=== PATIENT | male | born 1960 | race Two or more races ===

== ENCOUNTER 2018-06-13 16:50 | Inpatient (IN) | payer MEDICARE, MEDICAID ==
[~2018-06-13] VITALS: Ht 160 cm; Wt 63.5 kg
[2018-06-13 16:50] VITALS: BP 118/71
[~2018-06-13 16:50] MED LIST: ACET167L14 PO; BENZ1TAB7 MT; CHOL100044 MT; DIVA250T45 PO; DIVA500T51 PO; DOCU250C69 PO; FINA5TAB11 PO; INSU300I SQ; LORA0.5T2 PO; LORA10TA7 PO; MELA3TAB71 PO; POLY15DR55 LEFTEYE; PRAV10TA35 MT; PROP60CA2 PO; QUET100T33 PO; QUET300T19 MT; RISP1TAB26 PO; RISP2TAB22 PO; SERT-112 MT; SERT-112 PO; TAMS0.4C31 PO; [UNRECOGNIZED DRUG - CODE] PO
[2018-06-13] MEDS ORDERED: DIPHENHYDRAMINE 25MG CAPSULE PO PRN (18:30)
[2018-06-13] MEDS ORDERED: TRAMADOL 50MG TABLET PO PRN (19:30)
[2018-06-13] MEDS ORDERED: DEXTROSE 50% WATER 50ML SYRINGE IV PRN (19:30)
[2018-06-13] MEDS ORDERED: CLONIDINE 0.1MG TABLET PO PRN (19:30)
[2018-06-13] MEDS ORDERED: NA PHOS,M-B/NA PHOS,DI-BA ENEMA 118ML PR PRN (19:30)
[2018-06-13] MEDS ORDERED: KETOROLAC 15MG/ML VIAL IV PRN (19:30)
[2018-06-13] MEDS ORDERED: DOCUSATE SODIUM 100MG CAPSULE PO PRN (19:30)
[2018-06-13] MEDS ORDERED: ONDANSETRON 4MG ODT PO PRN (19:30)
[2018-06-13] MEDS ORDERED: CYCLOBENZAPRINE 10MG TABLET PO PRN (19:30)
[2018-06-13] MEDS ORDERED: IPRATROPIUM/ALBUTEROL 0.5-3(2.5)MG/3ML NEB HHN PRN (19:30)
[2018-06-13] MEDS ORDERED: LORAZEPAM 0.5MG TABLET PO PRN (19:30)
[2018-06-13 20:00] VITALS: BP 154/80
[2018-06-13] MEDS ORDERED: GUAIFENESIN 200MG/10ML SUGAR FREE UDC PO PRN (20:00)
[2018-06-13] MEDS ORDERED: MORPHINE SULFATE 4 MG/ML CPJ (NOT FOR IM USE) IV PRN (20:00)
[2018-06-13] MEDS ORDERED: MAGNESIUM/ALUMINUM HYDROXIDE/SIMETHICONE 30ML UDC PO PRN (20:00)
[2018-06-13] MEDS ORDERED: HYDROCODONE/ACETAMINOPHEN 10/325MG TABLET PO PRN (20:00)
[2018-06-13] MEDS ORDERED: HALOPERIDOL LACTATE 5MG/ML VIAL IM PRN (20:00)
[2018-06-13] MEDS: BLOOD SUGAR DIAGNOSTIC STRIP TEST SCH (20:54)
[2018-06-13] MEDS ORDERED: ZOLPIDEM TARTRATE 5MG TABLET PO PRN (21:00)
[2018-06-13] MEDS: ATORVASTATIN CALCIUM 10MG TABLET PO SCH (21:26)
[2018-06-13] MEDS: DIVALPROEX SODIUM 500MG ER TABLET PO SCH (21:26)
[2018-06-13] MEDS: DIVALPROEX SODIUM 250MG ER TABLET PO SCH (21:26)
[2018-06-13] MEDS: QUETIAPINE FUMARATE 50MG TABLET PO SCH (21:26)
[2018-06-13] MEDS: ASCORBIC ACID 500 MG TABLET PO SCH (21:26)
[2018-06-13] MEDS: FAMOTIDINE 20MG TABLET PO SCH (21:26)
[2018-06-13] MEDS: INSULIN LISPRO 100 UNITS/ML SUBCUT SCH (21:27)
[2018-06-13] MEDS: RISPERIDONE 0.5MG TABLET PO SCH (21:27)
[2018-06-13] MEDS: TAMSULOSIN HCL 0.4MG SR CAPSULE PO SCH (21:27)
[2018-06-13] MEDS: INSULIN GLARGINE UD 100 UNITS/ML SYR SUBCUT SCH (21:28)
[2018-06-14] MEDS: INSULIN LISPRO 100 UNITS/ML SUBCUT SCH ×4 (06:38→21:20)
[2018-06-14] MEDS: BLOOD SUGAR DIAGNOSTIC STRIP TEST SCH ×4 (06:38→21:12)
[2018-06-14 08:00] VITALS: BP 102/55
[2018-06-14] MEDS: FERROUS SULFATE 300MG/5ML UDC PO SCH ×3 (09:43→17:37)
[2018-06-14] MEDS: SERTRALINE HCL 100MG TABLET PO SCH (09:43)
[2018-06-14] MEDS: SERTRALINE HCL 25MG TABLET PO SCH (09:43)
[2018-06-14] MEDS: FAMOTIDINE 20MG TABLET PO SCH ×2 (09:44→21:12)
[2018-06-14] MEDS: ZINC SULFATE 220 MG ( 50 ) CAPSULE PO SCH (09:44)
[2018-06-14] MEDS: ASCORBIC ACID 500 MG TABLET PO SCH ×2 (09:44→21:12)
[2018-06-14] MEDS: ENOXAPARIN 40MG/0.4ML SYR SUBCUT SCH (09:46)
[2018-06-14] MEDS ORDERED: HYDROCODONE/ACETAMINOPHEN 5/325MG TABLET PO PRN (11:15)
[2018-06-14] MEDS: HYDROCODONE/ACETAMINOPHEN 5/325MG TABLET PO PRN (14:16)
[2018-06-14] MEDS: PROPRANOLOL HCL 20MG TABLET PO SCH ×2 (14:23→21:13)
[2018-06-14 17:20] LABS: BASOPHILS % 0.2 % (0.0-2.0); EOSINOPHILS % 0.1 % (0.0-5.0); HEMATOCRIT. 23.7 % (42.0-52.0); HEMOGLOBIN. 8.2 g/dL (14.0-18.0); LYMPHOCYTES % 15.1 % (20.0-50.0); MEAN CORPUSCULAR HEMOGLOBIN 34.4 pg (28.0-32.0); MEAN CORPUSCULAR VOLUME 100.2 fL (80.0-94.0); MONOCYTES % 10.4 % (2.0-8.0); NEUTROPHILS % 74.2 % (40.0-76.0); PLATELET 181 x1000/uL (130-400); RED BLOOD CELL COUNT 2.37 mill/uL (4.7-6.1)
[2018-06-14 17:42] LABS: CHLORIDE 106 mEq/L (98-107)
[2018-06-14 20:00] VITALS: BP 112/64
[2018-06-14] MEDS: DIVALPROEX SODIUM 250MG ER TABLET PO SCH (21:11)
[2018-06-14] MEDS: DIVALPROEX SODIUM 500MG ER TABLET PO SCH (21:11)
[2018-06-14] MEDS: QUETIAPINE FUMARATE 50MG TABLET PO SCH (21:12)
[2018-06-14] MEDS: TAMSULOSIN HCL 0.4MG SR CAPSULE PO SCH (21:12)
[2018-06-14] MEDS: ATORVASTATIN CALCIUM 10MG TABLET PO SCH (21:12)
[2018-06-14] MEDS: RISPERIDONE 0.5MG TABLET PO SCH (21:12)
[2018-06-14] MEDS: INSULIN GLARGINE UD 100 UNITS/ML SYR SUBCUT SCH (22:19)
[2018-06-15] MEDS: BLOOD SUGAR DIAGNOSTIC STRIP TEST SCH ×4 (06:34→21:59)
[2018-06-15] MEDS: PROPRANOLOL HCL 20MG TABLET PO SCH ×3 (06:37→22:00)
[2018-06-15] MEDS: INSULIN LISPRO 100 UNITS/ML SUBCUT SCH ×5 (06:40→21:58)
[2018-06-15 07:15] LABS: BASOPHILS % 0.1 % (0.0-2.0); EOSINOPHILS % 0.3 % (0.0-5.0); HEMATOCRIT. 23.8 % (42.0-52.0); HEMOGLOBIN. 8.1 g/dL (14.0-18.0); LYMPHOCYTES % 20.7 % (20.0-50.0); MEAN PLATELET VOLUME 7.1 fl (7.4-10.4); MONOCYTES % 10.3 % (2.0-8.0); NEUTROPHILS % 68.6 % (40.0-76.0); PLATELET 195 x1000/uL (130-400); RED BLOOD CELL COUNT 2.38 mill/uL (4.7-6.1)
[2018-06-15 07:30] LABS: CHLORIDE 104 mEq/L (98-107)
[2018-06-15 08:00] VITALS: BP 111/67
[2018-06-15] MEDS: FAMOTIDINE 20MG TABLET PO SCH ×2 (08:49→21:54)
[2018-06-15] MEDS: FERROUS SULFATE 300MG/5ML UDC PO SCH (08:49)
[2018-06-15] MEDS: SERTRALINE HCL 100MG TABLET PO SCH (08:49)
[2018-06-15] MEDS: ASCORBIC ACID 500 MG TABLET PO SCH ×2 (08:49→21:53)
[2018-06-15] MEDS: SERTRALINE HCL 25MG TABLET PO SCH (08:49)
[2018-06-15] MEDS: ENOXAPARIN 40MG/0.4ML SYR SUBCUT SCH (08:49)
[2018-06-15] MEDS: ZINC SULFATE 220 MG ( 50 ) CAPSULE PO SCH (08:49)
[2018-06-15] MEDS: FERROUS SULFATE 325MG TABLET PO SCH ×2 (12:41→17:37)
[2018-06-15 14:36] LABS: PHOSPHORUS 2.7 mg/dL (2.5-4.9)
[2018-06-15 15:03] LABS: CLARITY URINE CLEAR (CLEAR); COLOR URINE YELLOW (YELLOW); KETONES URINE 1+ (NEGATIVE); LEUKOCYTE ESTERASE URINE NEGATIVE (NEGATIVE); NITRITE URINE NEGATIVE (NEGATIVE); OCCULT BLOOD URINE NEGATIVE (NEGATIVE); PH URINE 6.5 (4.5-8.0); PROTEIN URINE NEGATIVE (NEGATIVE); SPECIFIC GRAVITY URINE 1.035 (1.005-1.030)
[2018-06-15 20:00] VITALS: BP 114/70
[2018-06-15] MEDS: ATORVASTATIN CALCIUM 10MG TABLET PO SCH (21:52)
[2018-06-15] MEDS: RISPERIDONE 0.5MG TABLET PO SCH (21:53)
[2018-06-15] MEDS: TAMSULOSIN HCL 0.4MG SR CAPSULE PO SCH (21:53)
[2018-06-15] MEDS: QUETIAPINE FUMARATE 50MG TABLET PO SCH (21:54)
[2018-06-15] MEDS: DIVALPROEX SODIUM 250MG ER TABLET PO SCH (21:56)
[2018-06-15] MEDS: DIVALPROEX SODIUM 500MG ER TABLET PO SCH (21:57)
[2018-06-15] MEDS: INSULIN GLARGINE UD 100 UNITS/ML SYR SUBCUT SCH (21:59)
[2018-06-16] MEDS: PROPRANOLOL HCL 20MG TABLET PO SCH ×3 (05:51→22:00)
[2018-06-16] MEDS: BLOOD SUGAR DIAGNOSTIC STRIP TEST SCH ×4 (05:52→21:37)
[2018-06-16 06:42] LABS: BASOPHILS % 0.2 % (0.0-2.0); EOSINOPHILS % 0.5 % (0.0-5.0); HEMATOCRIT. 24.2 % (42.0-52.0); HEMOGLOBIN. 8.4 g/dL (14.0-18.0); LYMPHOCYTES % 27.9 % (20.0-50.0); MEAN CORPUSCULAR HEMOGLOBIN 34.8 pg (28.0-32.0); MEAN CORPUSCULAR VOLUME 99.7 fL (80.0-94.0); MEAN PLATELET VOLUME 7.1 fl (7.4-10.4); MONOCYTES % 9.3 % (2.0-8.0); NEUTROPHILS % 62.1 % (40.0-76.0); PLATELET 233 x1000/uL (130-400); RED BLOOD CELL COUNT 2.43 mill/uL (4.7-6.1); RED CELL DISTRIBUTION WIDTH 13.3 % (11.6-14.6)
[2018-06-16 06:49] LABS: CHLORIDE 101 mEq/L (98-107)
[2018-06-16 06:59] LABS: LDL CHOLESTEROL 65 mg/dL (5-100)
[2018-06-16 07:00] VITALS: BP 104/58
[2018-06-16 07:00] LABS: TOTAL IRON BINDING CAPACITY 182 ug/dL (250-450)
[2018-06-16 07:01] LABS: HDL CHOLESTEROL 25 mg/dL (40-59)
[2018-06-16 07:02] LABS: PROSTRATE SPECIFIC AG TOTAL 0.16 ng/mL (0.0-4.0)
[2018-06-16 07:03] LABS: FOLIC ACID (FOLATE) SERUM 13.8 ng/mL (>5.38)
[2018-06-16] MEDS: INSULIN LISPRO 100 UNITS/ML SUBCUT SCH ×4 (08:57→21:48)
[2018-06-16] MEDS: SERTRALINE HCL 100MG TABLET PO SCH (08:58)
[2018-06-16] MEDS: ZINC SULFATE 220 MG ( 50 ) CAPSULE PO SCH (08:58)
[2018-06-16] MEDS: FAMOTIDINE 20MG TABLET PO SCH ×2 (08:58→21:46)
[2018-06-16] MEDS: FERROUS SULFATE 325MG TABLET PO SCH ×3 (08:59→17:26)
[2018-06-16] MEDS: ASCORBIC ACID 500 MG TABLET PO SCH ×2 (08:59→21:46)
[2018-06-16] MEDS: SERTRALINE HCL 25MG TABLET PO SCH (08:59)
[2018-06-16] MEDS: HYDROCODONE/ACETAMINOPHEN 5/325MG TABLET PO PRN ×2 (09:01→14:23)
[2018-06-16] MEDS: ENOXAPARIN 40MG/0.4ML SYR SUBCUT SCH (09:03)
[2018-06-16 14:15] VITALS: BP 111/66
[2018-06-16] MEDS: CYANOCOBALAMIN 1000MCG/ML VIAL IM SCH (15:21)
[2018-06-16 20:00] VITALS: BP 117/64
[2018-06-16] MEDS: ATORVASTATIN CALCIUM 10MG TABLET PO SCH (21:46)
[2018-06-16] MEDS: RISPERIDONE 0.5MG TABLET PO SCH (21:46)
[2018-06-16] MEDS: QUETIAPINE FUMARATE 50MG TABLET PO SCH (21:46)
[2018-06-16] MEDS: TAMSULOSIN HCL 0.4MG SR CAPSULE PO SCH (21:46)
[2018-06-16] MEDS: DIVALPROEX SODIUM 250MG ER TABLET PO SCH (21:47)
[2018-06-16] MEDS: DIVALPROEX SODIUM 500MG ER TABLET PO SCH (21:47)
[2018-06-16] MEDS: INSULIN GLARGINE UD 100 UNITS/ML SYR SUBCUT SCH (21:49)
[2018-06-17] MEDS: PROPRANOLOL HCL 20MG TABLET PO SCH ×2 (06:00→13:21)
[2018-06-17] MEDS: BLOOD SUGAR DIAGNOSTIC STRIP TEST SCH ×4 (06:23→21:00)
[2018-06-17] MEDS: INSULIN LISPRO 100 UNITS/ML SUBCUT SCH ×4 (06:56→22:44)
[2018-06-17 08:00] VITALS: BP 109/64
[2018-06-17] MEDS: FERROUS SULFATE 325MG TABLET PO SCH ×3 (08:20→17:23)
[2018-06-17] MEDS: CYANOCOBALAMIN 1000MCG/ML VIAL IM SCH (08:20)
[2018-06-17] MEDS: FAMOTIDINE 20MG TABLET PO SCH ×2 (08:20→22:40)
[2018-06-17] MEDS: ZINC SULFATE 220 MG ( 50 ) CAPSULE PO SCH (08:20)
[2018-06-17] MEDS: ENOXAPARIN 40MG/0.4ML SYR SUBCUT SCH (08:21)
[2018-06-17] MEDS: SERTRALINE HCL 25MG TABLET PO SCH (08:21)
[2018-06-17] MEDS: SERTRALINE HCL 100MG TABLET PO SCH (08:21)
[2018-06-17] MEDS: ASCORBIC ACID 500 MG TABLET PO SCH ×2 (08:21→22:40)
[2018-06-17] MEDS: HYDROCODONE/ACETAMINOPHEN 5/325MG TABLET PO SCH ×2 (08:23→12:41)
[2018-06-17] MEDS: MAGNESIUM OXIDE 400MG TABLET PO SCH (17:23)
[2018-06-17] MEDS: NYSTATIN POWDER 15GM TOP SCH (19:20)
[2018-06-17 20:00] VITALS: BP 114/59
[2018-06-17] MEDS: DIVALPROEX SODIUM 500MG ER TABLET PO SCH (22:40)
[2018-06-17] MEDS: QUETIAPINE FUMARATE 50MG TABLET PO SCH (22:40)
[2018-06-17] MEDS: ATORVASTATIN CALCIUM 10MG TABLET PO SCH (22:41)
[2018-06-17] MEDS: DIVALPROEX SODIUM 250MG ER TABLET PO SCH (22:41)
[2018-06-17] MEDS: RISPERIDONE 0.5MG TABLET PO SCH (22:41)
[2018-06-17] MEDS: TAMSULOSIN HCL 0.4MG SR CAPSULE PO SCH (22:44)
[2018-06-17] MEDS: INSULIN GLARGINE UD 100 UNITS/ML SYR SUBCUT SCH (22:44)
[2018-06-18] MEDS: BLOOD SUGAR DIAGNOSTIC STRIP TEST SCH ×4 (06:15→21:00)
[2018-06-18 07:25] LABS: HEMATOCRIT. 24.4 % (42.0-52.0); HEMOGLOBIN. 8.5 g/dL (14.0-18.0); MEAN CORPUSCULAR HEMOGLOBIN 34.7 pg (28.0-32.0); MEAN CORPUSCULAR VOLUME 100.3 fL (80.0-94.0); MEAN PLATELET VOLUME 6.6 fl (7.4-10.4); PLATELET 266 x1000/uL (130-400); RED BLOOD CELL COUNT 2.43 mill/uL (4.7-6.1); RED CELL DISTRIBUTION WIDTH 14.1 % (11.6-14.6)
[2018-06-18 07:49] LABS: CHLORIDE 100 mEq/L (98-107)
[2018-06-18 08:00] VITALS: BP_SYST 108; BP_SYST 120; BP_SYST 167; BP_DIAS 58; BP_DIAS 64; BP_DIAS 74
[2018-06-18] MEDS: HYDROCODONE/ACETAMINOPHEN 5/325MG TABLET PO SCH ×2 (08:00→12:47)
[2018-06-18] MEDS: ENOXAPARIN 40MG/0.4ML SYR SUBCUT SCH (08:54)
[2018-06-18] MEDS: NYSTATIN POWDER 15GM TOP SCH ×2 (08:55→17:56)
[2018-06-18] MEDS: MAGNESIUM OXIDE 400MG TABLET PO SCH (09:00)
[2018-06-18] MEDS: ZINC SULFATE 220 MG ( 50 ) CAPSULE PO SCH (09:00)
[2018-06-18] MEDS: SERTRALINE HCL 100MG TABLET PO SCH (09:00)
[2018-06-18] MEDS: CYANOCOBALAMIN 1000MCG/ML VIAL IM SCH (09:00)
[2018-06-18] MEDS: ASCORBIC ACID 500 MG TABLET PO SCH ×2 (09:00→22:17)
[2018-06-18] MEDS: SERTRALINE HCL 25MG TABLET PO SCH (09:00)
[2018-06-18] MEDS: FERROUS SULFATE 325MG TABLET PO SCH ×3 (09:00→16:42)
[2018-06-18] MEDS: FAMOTIDINE 20MG TABLET PO SCH ×2 (09:00→22:17)
[2018-06-18] MEDS: INSULIN LISPRO 100 UNITS/ML SUBCUT SCH ×4 (10:49→22:19)
[2018-06-18 16:48] LABS: PLATELET ESTIMATE NORMAL
[2018-06-18 20:00] VITALS: BP 129/58
[2018-06-18] MEDS: DIVALPROEX SODIUM 500MG ER TABLET PO SCH (22:16)
[2018-06-18] MEDS: ATORVASTATIN CALCIUM 10MG TABLET PO SCH (22:16)
[2018-06-18] MEDS: RISPERIDONE 0.5MG TABLET PO SCH (22:16)
[2018-06-18] MEDS: TAMSULOSIN HCL 0.4MG SR CAPSULE PO SCH (22:16)
[2018-06-18] MEDS: DIVALPROEX SODIUM 250MG ER TABLET PO SCH (22:16)
[2018-06-18] MEDS: PROPRANOLOL HCL 20MG TABLET PO SCH (22:17)
[2018-06-18] MEDS: QUETIAPINE FUMARATE 50MG TABLET PO SCH (22:17)
[2018-06-18] MEDS: INSULIN GLARGINE UD 100 UNITS/ML SYR SUBCUT SCH (22:18)
[2018-06-19] MEDS: BLOOD SUGAR DIAGNOSTIC STRIP TEST SCH ×4 (06:05→21:00)
[2018-06-19] MEDS: INSULIN LISPRO 100 UNITS/ML SUBCUT SCH ×4 (06:12→22:26)
[2018-06-19 08:00] VITALS: BP 103/59
[2018-06-19] MEDS: ZINC SULFATE 220 MG ( 50 ) CAPSULE PO SCH (08:26)
[2018-06-19] MEDS: SERTRALINE HCL 25MG TABLET PO SCH (08:27)
[2018-06-19] MEDS: PROPRANOLOL HCL 20MG TABLET PO SCH ×2 (08:27→22:21)
[2018-06-19] MEDS: SERTRALINE HCL 100MG TABLET PO SCH (08:28)
[2018-06-19] MEDS: FAMOTIDINE 20MG TABLET PO SCH ×2 (08:28→22:20)
[2018-06-19] MEDS: MAGNESIUM OXIDE 400MG TABLET PO SCH (08:28)
[2018-06-19] MEDS: FERROUS SULFATE 325MG TABLET PO SCH ×3 (08:28→17:17)
[2018-06-19] MEDS: ASCORBIC ACID 500 MG TABLET PO SCH ×2 (08:28→22:19)
[2018-06-19] MEDS: NYSTATIN POWDER 15GM TOP SCH ×2 (08:29→17:18)
[2018-06-19] MEDS: ENOXAPARIN 40MG/0.4ML SYR SUBCUT SCH (08:29)
[2018-06-19] MEDS: HYDROCODONE/ACETAMINOPHEN 5/325MG TABLET PO SCH ×2 (08:29→13:20)
[2018-06-19 20:00] VITALS: BP 104/65
[2018-06-19] MEDS: ATORVASTATIN CALCIUM 10MG TABLET PO SCH (22:19)
[2018-06-19] MEDS: TAMSULOSIN HCL 0.4MG SR CAPSULE PO SCH (22:20)
[2018-06-19] MEDS: QUETIAPINE FUMARATE 50MG TABLET PO SCH (22:20)
[2018-06-19] MEDS: RISPERIDONE 0.5MG TABLET PO SCH (22:20)
[2018-06-19] MEDS: DIVALPROEX SODIUM 250MG ER TABLET PO SCH (22:20)
[2018-06-19] MEDS: INSULIN GLARGINE UD 100 UNITS/ML SYR SUBCUT SCH (22:27)
[2018-06-19] MEDS: DIVALPROEX SODIUM 500MG ER TABLET PO SCH (23:37)
[2018-06-20 07:50] VITALS: BP 109/57
[2018-06-20] MEDS: HYDROCODONE/ACETAMINOPHEN 5/325MG TABLET PO SCH ×2 (08:00→13:01)
[2018-06-20] MEDS: PROPRANOLOL HCL 20MG TABLET PO SCH ×2 (09:00→22:10)
[2018-06-20] MEDS: ZINC SULFATE 220 MG ( 50 ) CAPSULE PO SCH (10:38)
[2018-06-20] MEDS: FAMOTIDINE 20MG TABLET PO SCH ×2 (10:38→22:09)
[2018-06-20] MEDS: MAGNESIUM OXIDE 400MG TABLET PO SCH (10:38)
[2018-06-20] MEDS: FERROUS SULFATE 325MG TABLET PO SCH ×3 (10:38→17:21)
[2018-06-20] MEDS: SERTRALINE HCL 100MG TABLET PO SCH (10:38)
[2018-06-20] MEDS: ASCORBIC ACID 500 MG TABLET PO SCH ×2 (10:38→22:07)
[2018-06-20] MEDS: INSULIN LISPRO 100 UNITS/ML SUBCUT SCH ×4 (10:39→22:05)
[2018-06-20] MEDS: ENOXAPARIN 40MG/0.4ML SYR SUBCUT SCH (10:39)
[2018-06-20] MEDS: NYSTATIN POWDER 15GM TOP SCH ×2 (10:41→17:21)
[2018-06-20 11:03] LABS: CLARITY URINE CLEAR (CLEAR); COLOR URINE DARK YELLOW (YELLOW); KETONES URINE TRACE (NEGATIVE); LEUKOCYTE ESTERASE URINE NEGATIVE (NEGATIVE); NITRITE URINE NEGATIVE (NEGATIVE); OCCULT BLOOD URINE NEGATIVE (NEGATIVE); PROTEIN URINE NEGATIVE (NEGATIVE); SPECIFIC GRAVITY URINE 1.032 (1.005-1.030)
[2018-06-20] MEDS: SERTRALINE HCL 25MG TABLET PO SCH (11:36)
[2018-06-20] MEDS: BLOOD SUGAR DIAGNOSTIC STRIP TEST SCH ×3 (11:49→21:00)
[2018-06-20 13:41] LABS: CHLORIDE 95 mEq/L (98-107)
[2018-06-20 13:43] LABS: AMMONIA 48 uMol/L (<32)
[2018-06-20 13:49] LABS: PHOSPHORUS 3.4 mg/dL (2.5-4.9)
[2018-06-20 14:14] LABS: HEMATOCRIT. 32.7 % (42.0-52.0); HEMOGLOBIN. 11.2 g/dL (14.0-18.0); MEAN CORPUSCULAR VOLUME 102.8 fL (80.0-94.0); MEAN PLATELET VOLUME 6.8 fl (7.4-10.4); PLATELET 427 x1000/uL (130-400); RED BLOOD CELL COUNT 3.18 mill/uL (4.7-6.1); RED CELL DISTRIBUTION WIDTH 15.4 % (11.6-14.6)
[2018-06-20 16:11] LABS: PLATELET ESTIMATE INCREASED
[2018-06-20 20:00] VITALS: BP 130/65
[2018-06-20] MEDS: INSULIN GLARGINE UD 100 UNITS/ML SYR SUBCUT SCH (22:05)
[2018-06-20] MEDS: RISPERIDONE 0.5MG TABLET PO SCH (22:06)
[2018-06-20] MEDS: QUETIAPINE FUMARATE 50MG TABLET PO SCH (22:07)
[2018-06-20] MEDS: TAMSULOSIN HCL 0.4MG SR CAPSULE PO SCH (22:07)
[2018-06-20] MEDS: ATORVASTATIN CALCIUM 10MG TABLET PO SCH (22:08)
[2018-06-20] MEDS: DIVALPROEX SODIUM 250MG ER TABLET PO SCH (22:09)
[2018-06-20] MEDS: DIVALPROEX SODIUM 500MG ER TABLET PO SCH (22:10)
[2018-06-21] MEDS: BLOOD SUGAR DIAGNOSTIC STRIP TEST SCH ×4 (05:55→21:00)
[2018-06-21 06:52] LABS: BASOPHILS % 0.4 % (0.0-2.0); EOSINOPHILS % 0.2 % (0.0-5.0); HEMATOCRIT. 33.4 % (42.0-52.0); HEMOGLOBIN. 11.4 g/dL (14.0-18.0); LYMPHOCYTES % 23.5 % (20.0-50.0); MEAN CORPUSCULAR HEMOGLOBIN 35.3 pg (28.0-32.0); MEAN CORPUSCULAR VOLUME 103.8 fL (80.0-94.0); MEAN PLATELET VOLUME 6.4 fl (7.4-10.4); NEUTROPHILS % 65.9 % (40.0-76.0); PLATELET 368 x1000/uL (130-400); RED BLOOD CELL COUNT 3.22 mill/uL (4.7-6.1); RED CELL DISTRIBUTION WIDTH 16.1 % (11.6-14.6)
[2018-06-21 07:00] VITALS: BP 112/56
[2018-06-21 07:43] LABS: CHLORIDE 100 mEq/L (98-107)
[2018-06-21] MEDS: MAGNESIUM OXIDE 400MG TABLET PO SCH (08:44)
[2018-06-21] MEDS: FERROUS SULFATE 325MG TABLET PO SCH ×3 (08:44→16:59)
[2018-06-21] MEDS: PROPRANOLOL HCL 20MG TABLET PO SCH ×2 (08:44→21:59)
[2018-06-21] MEDS: ZINC SULFATE 220 MG ( 50 ) CAPSULE PO SCH (08:44)
[2018-06-21] MEDS: ENOXAPARIN 40MG/0.4ML SYR SUBCUT SCH (08:45)
[2018-06-21] MEDS: SERTRALINE HCL 25MG TABLET PO SCH (08:45)
[2018-06-21] MEDS: FAMOTIDINE 20MG TABLET PO SCH ×2 (08:45→22:00)
[2018-06-21] MEDS: SERTRALINE HCL 100MG TABLET PO SCH (08:45)
[2018-06-21] MEDS: HYDROCODONE/ACETAMINOPHEN 5/325MG TABLET PO SCH ×2 (08:47→13:42)
[2018-06-21] MEDS ORDERED: ASCORBIC ACID 250 MG TABLET PO SCH (09:00)
[2018-06-21] MEDS: INSULIN LISPRO 100 UNITS/ML SUBCUT SCH ×4 (09:00→22:57)
[2018-06-21] MEDS: NYSTATIN POWDER 15GM TOP SCH ×2 (09:59→16:58)
[2018-06-21 13:35] VITALS: BP 107/56
[2018-06-21] MEDS: LACTULOSE 20G/30ML UDC PO SCH ×2 (13:45→22:09)
[2018-06-21 20:00] VITALS: BP 112/60
[2018-06-21] MEDS: DIVALPROEX SODIUM 500MG ER TABLET PO SCH (21:57)
[2018-06-21] MEDS: DIVALPROEX SODIUM 250MG ER TABLET PO SCH (21:57)
[2018-06-21] MEDS: ATORVASTATIN CALCIUM 10MG TABLET PO SCH (22:00)
[2018-06-21] MEDS: QUETIAPINE FUMARATE 50MG TABLET PO SCH (22:00)
[2018-06-21] MEDS: ASCORBIC ACID 500 MG TABLET PO SCH (22:00)
[2018-06-21] MEDS: RISPERIDONE 0.5MG TABLET PO SCH (22:00)
[2018-06-21] MEDS: TAMSULOSIN HCL 0.4MG SR CAPSULE PO SCH (22:01)
[2018-06-21] MEDS: INSULIN GLARGINE UD 100 UNITS/ML SYR SUBCUT SCH (22:58)
[2018-06-22] MEDS: BLOOD SUGAR DIAGNOSTIC STRIP TEST SCH ×4 (05:51→21:00)
[2018-06-22] MEDS: LACTULOSE 20G/30ML UDC PO SCH ×3 (05:51→22:00)
[2018-06-22 07:00] VITALS: BP 101/55
[2018-06-22] MEDS: INSULIN LISPRO 100 UNITS/ML SUBCUT SCH ×4 (07:09→21:00)
[2018-06-22 07:56] LABS: AMMONIA 86 uMol/L (<32)
[2018-06-22] MEDS: ZINC SULFATE 220 MG ( 50 ) CAPSULE PO SCH (08:57)
[2018-06-22] MEDS: ASCORBIC ACID 500 MG TABLET PO SCH ×2 (08:57→22:44)
[2018-06-22] MEDS: FERROUS SULFATE 325MG TABLET PO SCH ×3 (08:58→16:11)
[2018-06-22] MEDS: MAGNESIUM OXIDE 400MG TABLET PO SCH (08:58)
[2018-06-22] MEDS: ENOXAPARIN 40MG/0.4ML SYR SUBCUT SCH (08:59)
[2018-06-22] MEDS: SERTRALINE HCL 100MG TABLET PO SCH (08:59)
[2018-06-22] MEDS: FAMOTIDINE 20MG TABLET PO SCH ×2 (08:59→22:44)
[2018-06-22] MEDS: SERTRALINE HCL 25MG TABLET PO SCH (08:59)
[2018-06-22] MEDS: PROPRANOLOL HCL 20MG TABLET PO SCH ×2 (09:00→22:44)
[2018-06-22] MEDS: HYDROCODONE/ACETAMINOPHEN 5/325MG TABLET PO SCH ×2 (09:01→13:28)
[2018-06-22] MEDS: NYSTATIN POWDER 15GM TOP SCH ×2 (09:05→16:11)
[2018-06-22 11:27] LABS: CHLORIDE 99 mEq/L (98-107)
[2018-06-22 11:30] VITALS: BP 101/60
[2018-06-22 13:20] VITALS: BP 129/72
[2018-06-22 20:00] VITALS: BP 69/9
[2018-06-22] MEDS: RISPERIDONE 0.5MG TABLET PO SCH (21:00)
[2018-06-22] MEDS: INSULIN GLARGINE UD 100 UNITS/ML SYR SUBCUT SCH (22:00)
[2018-06-22] MEDS: ATORVASTATIN CALCIUM 10MG TABLET PO SCH ×2 (22:43→22:46)
[2018-06-22] MEDS: DIVALPROEX SODIUM 500MG ER TABLET PO SCH (22:43)
[2018-06-22] MEDS: TAMSULOSIN HCL 0.4MG SR CAPSULE PO SCH (22:46)
[2018-06-22] MEDS: QUETIAPINE FUMARATE 50MG TABLET PO SCH (22:47)
[2018-06-22] MEDS: DIVALPROEX SODIUM 250MG ER TABLET PO SCH (23:33)
[2018-06-23] MEDS: BLOOD SUGAR DIAGNOSTIC STRIP TEST SCH ×4 (05:37→21:39)
[2018-06-23] MEDS: LACTULOSE 20G/30ML UDC PO SCH ×3 (05:37→21:46)
[2018-06-23] MEDS: INSULIN LISPRO 100 UNITS/ML SUBCUT SCH ×4 (06:02→21:49)
[2018-06-23 07:50] VITALS: BP 152/59
[2018-06-23] MEDS: ASCORBIC ACID 500 MG TABLET PO SCH ×2 (08:36→21:48)
[2018-06-23] MEDS: FAMOTIDINE 20MG TABLET PO SCH ×2 (08:36→21:48)
[2018-06-23] MEDS: ZINC SULFATE 220 MG ( 50 ) CAPSULE PO SCH (08:36)
[2018-06-23] MEDS: MAGNESIUM OXIDE 400MG TABLET PO SCH (08:36)
[2018-06-23] MEDS: FERROUS SULFATE 325MG TABLET PO SCH ×3 (08:36→16:59)
[2018-06-23] MEDS: PROPRANOLOL HCL 20MG TABLET PO SCH ×2 (08:37→21:00)
[2018-06-23] MEDS: ENOXAPARIN 40MG/0.4ML SYR SUBCUT SCH (08:40)
[2018-06-23] MEDS: SERTRALINE HCL 25MG TABLET PO SCH (08:40)
[2018-06-23] MEDS: SERTRALINE HCL 100MG TABLET PO SCH (08:40)
[2018-06-23] MEDS: NYSTATIN POWDER 15GM TOP SCH ×2 (08:41→16:59)
[2018-06-23] MEDS: ACETAMINOPHEN 650MG/20.3ML UDC PO PRN (09:38)
[2018-06-23] MEDS: HYDROCODONE/ACETAMINOPHEN 5/325MG TABLET PO SCH (13:40)
[2018-06-23 15:54] LABS: CHLORIDE 95 mEq/L (98-107)
[2018-06-23 16:01] LABS: AMMONIA 43 uMol/L (<32)
[2018-06-23 20:00] VITALS: BP 126/55
[2018-06-23] MEDS: DIVALPROEX SODIUM 500MG ER TABLET PO SCH (21:47)
[2018-06-23] MEDS: DIVALPROEX SODIUM 250MG ER TABLET PO SCH (21:47)
[2018-06-23] MEDS: RISPERIDONE 0.5MG TABLET PO SCH (21:48)
[2018-06-23] MEDS: TAMSULOSIN HCL 0.4MG SR CAPSULE PO SCH (21:48)
[2018-06-23] MEDS: QUETIAPINE FUMARATE 50MG TABLET PO SCH (21:48)
[2018-06-23] MEDS: INSULIN GLARGINE UD 100 UNITS/ML SYR SUBCUT SCH (21:50)
[2018-06-24] MEDS: BLOOD SUGAR DIAGNOSTIC STRIP TEST SCH ×4 (06:25→21:44)
[2018-06-24] MEDS: LACTULOSE 20G/30ML UDC PO SCH ×3 (06:25→22:07)
[2018-06-24] MEDS: INSULIN LISPRO 100 UNITS/ML SUBCUT SCH ×4 (06:41→21:45)
[2018-06-24 07:05] LABS: AMMONIA 55 uMol/L (<32)
[2018-06-24 07:45] VITALS: BP 151/79
[2018-06-24] MEDS ORDERED: IOHEXOL-300 100 ML BOTTLE ONE (08:15)
[2018-06-24] MEDS ORDERED: HYDROCODONE/ACETAMINOPHEN 5/325MG TABLET PO SCH (09:00)
[2018-06-24] MEDS: SERTRALINE HCL 25MG TABLET PO SCH (09:06)
[2018-06-24] MEDS: ASCORBIC ACID 500 MG TABLET PO SCH ×2 (09:07→21:44)
[2018-06-24] MEDS: SERTRALINE HCL 100MG TABLET PO SCH (09:07)
[2018-06-24] MEDS: HYDROCODONE/ACETAMINOPHEN 5/325MG TABLET PO SCH (09:08)
[2018-06-24] MEDS: FERROUS SULFATE 325MG TABLET PO SCH ×3 (09:08→17:04)
[2018-06-24] MEDS: PROPRANOLOL HCL 20MG TABLET PO SCH ×2 (09:08→21:00)
[2018-06-24] MEDS: MAGNESIUM OXIDE 400MG TABLET PO SCH (09:08)
[2018-06-24] MEDS: FAMOTIDINE 20MG TABLET PO SCH ×2 (09:09→21:44)
[2018-06-24] MEDS: ENOXAPARIN 40MG/0.4ML SYR SUBCUT SCH (09:09)
[2018-06-24] MEDS: ZINC SULFATE 220 MG ( 50 ) CAPSULE PO SCH (09:09)
[2018-06-24] MEDS: NYSTATIN POWDER 15GM TOP SCH ×2 (09:10→17:04)
[2018-06-24] MEDS ORDERED: BISACODYL 10MG SUPP PR NR ×2 (17:35→20:00)
[2018-06-24] MEDS ORDERED: NA PHOS,M-B/NA PHOS,DI-BA ENEMA 118ML PR NR ×2 (17:45→20:00)
[2018-06-24 20:00] VITALS: BP 123/62
[2018-06-24] MEDS: DIVALPROEX SODIUM 500MG ER TABLET PO SCH (21:42)
[2018-06-24] MEDS: DIVALPROEX SODIUM 250MG ER TABLET PO SCH (21:43)
[2018-06-24] MEDS: RISPERIDONE 0.5MG TABLET PO SCH (21:43)
[2018-06-24] MEDS: TAMSULOSIN HCL 0.4MG SR CAPSULE PO SCH (21:43)
[2018-06-24] MEDS: ATORVASTATIN CALCIUM 10MG TABLET PO SCH (21:44)
[2018-06-24] MEDS: QUETIAPINE FUMARATE 50MG TABLET PO SCH (21:44)
[2018-06-24] MEDS: INSULIN GLARGINE UD 100 UNITS/ML SYR SUBCUT SCH (21:46)
[2018-06-25] VITALS: BP 118/68
[2018-06-25] MEDS ORDERED: BISACODYL 10MG SUPP PR PRN
[2018-06-25] MEDS: LACTULOSE 20G/30ML UDC PO SCH ×3 (05:51→21:36)
[2018-06-25] MEDS: BLOOD SUGAR DIAGNOSTIC STRIP TEST SCH ×4 (06:08→21:47)
[2018-06-25] MEDS: INSULIN LISPRO 100 UNITS/ML SUBCUT SCH ×4 (06:32→22:31)
[2018-06-25 07:40] VITALS: BP 102/57
[2018-06-25] MEDS: MAGNESIUM OXIDE 400MG TABLET PO SCH (08:48)
[2018-06-25] MEDS: FAMOTIDINE 20MG TABLET PO SCH ×2 (08:48→21:40)
[2018-06-25] MEDS: SERTRALINE HCL 100MG TABLET PO SCH (08:48)
[2018-06-25] MEDS: SERTRALINE HCL 25MG TABLET PO SCH (08:48)
[2018-06-25] MEDS: FERROUS SULFATE 325MG TABLET PO SCH ×3 (08:48→17:05)
[2018-06-25] MEDS: ZINC SULFATE 220 MG ( 50 ) CAPSULE PO SCH (08:48)
[2018-06-25] MEDS: NYSTATIN POWDER 15GM TOP SCH ×2 (08:53→17:06)
[2018-06-25] MEDS: ENOXAPARIN 40MG/0.4ML SYR SUBCUT SCH (08:53)
[2018-06-25] MEDS: PROPRANOLOL HCL 20MG TABLET PO SCH ×2 (08:53→21:38)
[2018-06-25] MEDS: ASCORBIC ACID 500 MG TABLET PO SCH ×2 (08:54→21:40)
[2018-06-25] MEDS: HYDROCODONE/ACETAMINOPHEN 5/325MG TABLET PO SCH (08:54)
[2018-06-25 17:06] LABS: 25-HYDROXY VITAMIN D3 37 ng/mL (.)
[2018-06-25 17:51] LABS: AMMONIA 45 uMol/L (<32)
[2018-06-25 20:00] VITALS: BP 102/54
[2018-06-25] MEDS: DIVALPROEX SODIUM 500MG ER TABLET PO SCH (21:37)
[2018-06-25] MEDS: ATORVASTATIN CALCIUM 10MG TABLET PO SCH (21:39)
[2018-06-25] MEDS: DIVALPROEX SODIUM 250MG ER TABLET PO SCH (21:40)
[2018-06-25] MEDS: TAMSULOSIN HCL 0.4MG SR CAPSULE PO SCH (21:40)
[2018-06-25] MEDS: RISPERIDONE 0.5MG TABLET PO SCH (21:40)
[2018-06-25] MEDS: QUETIAPINE FUMARATE 50MG TABLET PO SCH (21:40)
[2018-06-25] MEDS: INSULIN GLARGINE UD 100 UNITS/ML SYR SUBCUT SCH (22:31)
[2018-06-26] MEDS: LACTULOSE 20G/30ML UDC PO SCH ×3 (06:02→16:41)
[2018-06-26] MEDS: BLOOD SUGAR DIAGNOSTIC STRIP TEST SCH ×4 (06:03→20:07)
[2018-06-26 07:26] LABS: BASOPHILS % 0.4 % (0.0-2.0); EOSINOPHILS % 0.4 % (0.0-5.0); HEMATOCRIT. 31.3 % (42.0-52.0); HEMOGLOBIN. 10.5 g/dL (14.0-18.0); LYMPHOCYTES % 27.8 % (20.0-50.0); MEAN CORPUSCULAR HEMOGLOBIN 34.6 pg (28.0-32.0); MEAN CORPUSCULAR VOLUME 103.1 fL (80.0-94.0); MEAN PLATELET VOLUME 6.3 fl (7.4-10.4); MONOCYTES % 11.1 % (2.0-8.0); NEUTROPHILS % 60.3 % (40.0-76.0); PLATELET 326 x1000/uL (130-400); RED BLOOD CELL COUNT 3.04 mill/uL (4.7-6.1); RED CELL DISTRIBUTION WIDTH 15.5 % (11.6-14.6)
[2018-06-26 07:30] VITALS: BP 94/44
[2018-06-26 07:36] LABS: AMMONIA 89 uMol/L (<32)
[2018-06-26 08:13] LABS: CHLORIDE 100 mEq/L (98-107)
[2018-06-26 08:54] LABS: PHOSPHORUS 3.3 mg/dL (2.5-4.9)
[2018-06-26] MEDS: NYSTATIN POWDER 15GM TOP SCH ×2 (09:00→17:05)
[2018-06-26] MEDS: INSULIN LISPRO 100 UNITS/ML SUBCUT SCH ×4 (09:00→21:29)
[2018-06-26] MEDS: MAGNESIUM OXIDE 400MG TABLET PO SCH (10:25)
[2018-06-26] MEDS: PROPRANOLOL HCL 20MG TABLET PO SCH ×2 (10:25→21:28)
[2018-06-26] MEDS: HYDROCODONE/ACETAMINOPHEN 5/325MG TABLET PO SCH (10:26)
[2018-06-26] MEDS: ZINC SULFATE 220 MG ( 50 ) CAPSULE PO SCH (10:26)
[2018-06-26] MEDS: FAMOTIDINE 20MG TABLET PO SCH ×2 (10:26→20:07)
[2018-06-26] MEDS: ASCORBIC ACID 500 MG TABLET PO SCH ×2 (10:27→20:06)
[2018-06-26] MEDS: FERROUS SULFATE 325MG TABLET PO SCH ×3 (10:27→16:42)
[2018-06-26] MEDS: SERTRALINE HCL 100MG TABLET PO SCH (10:27)
[2018-06-26] MEDS: SERTRALINE HCL 25MG TABLET PO SCH (10:28)
[2018-06-26] MEDS: ENOXAPARIN 40MG/0.4ML SYR SUBCUT SCH (10:28)
[2018-06-26] MEDS: ACETAMINOPHEN 650MG/20.3ML UDC PO PRN (16:42)
[2018-06-26 20:00] VITALS: BP 113/57
[2018-06-26] MEDS: DIVALPROEX SODIUM 250MG ER TABLET PO SCH (20:06)
[2018-06-26] MEDS: DIVALPROEX SODIUM 500MG ER TABLET PO SCH (20:06)
[2018-06-26] MEDS: ATORVASTATIN CALCIUM 10MG TABLET PO SCH (20:07)
[2018-06-26] MEDS: TAMSULOSIN HCL 0.4MG SR CAPSULE PO SCH (20:07)
[2018-06-26] MEDS: QUETIAPINE FUMARATE 50MG TABLET PO SCH (20:07)
[2018-06-26] MEDS: RISPERIDONE 0.5MG TABLET PO SCH (21:28)
[2018-06-26] MEDS: INSULIN GLARGINE UD 100 UNITS/ML SYR SUBCUT SCH (21:29)
[2018-06-27] MEDS: BLOOD SUGAR DIAGNOSTIC STRIP TEST SCH ×4 (05:34→20:55)
[2018-06-27] MEDS: INSULIN LISPRO 100 UNITS/ML SUBCUT SCH ×4 (05:34→22:36)
[2018-06-27 08:00] VITALS: BP 101/48
[2018-06-27] MEDS: FERROUS SULFATE 325MG TABLET PO SCH ×3 (08:53→16:09)
[2018-06-27] MEDS: MAGNESIUM OXIDE 400MG TABLET PO SCH (08:53)
[2018-06-27] MEDS: ASCORBIC ACID 500 MG TABLET PO SCH ×2 (08:53→20:52)
[2018-06-27] MEDS: FAMOTIDINE 20MG TABLET PO SCH ×2 (08:54→20:52)
[2018-06-27] MEDS: ZINC SULFATE 220 MG ( 50 ) CAPSULE PO SCH (08:54)
[2018-06-27] MEDS: SERTRALINE HCL 100MG TABLET PO SCH (08:59)
[2018-06-27] MEDS: HYDROCODONE/ACETAMINOPHEN 5/325MG TABLET PO SCH (08:59)
[2018-06-27] MEDS: LACTULOSE 20G/30ML UDC PO SCH ×2 (09:00→16:09)
[2018-06-27] MEDS: PROPRANOLOL HCL 20MG TABLET PO SCH ×2 (09:00→20:51)
[2018-06-27] MEDS: SERTRALINE HCL 25MG TABLET PO SCH (09:00)
[2018-06-27] MEDS: ENOXAPARIN 40MG/0.4ML SYR SUBCUT SCH (09:01)
[2018-06-27] MEDS: NYSTATIN POWDER 15GM TOP SCH ×2 (09:09→16:10)
[2018-06-27 20:00] VITALS: BP 142/56
[2018-06-27] MEDS: DIVALPROEX SODIUM 250MG ER TABLET PO SCH (20:49)
[2018-06-27] MEDS: ATORVASTATIN CALCIUM 10MG TABLET PO SCH (20:51)
[2018-06-27] MEDS: TAMSULOSIN HCL 0.4MG SR CAPSULE PO SCH (20:51)
[2018-06-27] MEDS: QUETIAPINE FUMARATE 50MG TABLET PO SCH (20:51)
[2018-06-27] MEDS: DIVALPROEX SODIUM 500MG ER TABLET PO SCH (22:28)
[2018-06-27] MEDS: RISPERIDONE 0.5MG TABLET PO SCH (22:28)
[2018-06-27] MEDS: INSULIN GLARGINE UD 100 UNITS/ML SYR SUBCUT SCH (22:37)
[2018-06-28] MEDS: BLOOD SUGAR DIAGNOSTIC STRIP TEST SCH ×4 (06:35→21:04)
[2018-06-28] MEDS: INSULIN LISPRO 100 UNITS/ML SUBCUT SCH ×4 (06:38→21:09)
[2018-06-28 08:00] VITALS: BP 144/67
[2018-06-28] MEDS: ENOXAPARIN 40MG/0.4ML SYR SUBCUT SCH (08:48)
[2018-06-28] MEDS: PROPRANOLOL HCL 20MG TABLET PO SCH ×2 (08:48→20:44)
[2018-06-28] MEDS: LACTULOSE 20G/30ML UDC PO SCH ×2 (08:48→16:42)
[2018-06-28] MEDS: MAGNESIUM OXIDE 400MG TABLET PO SCH (08:49)
[2018-06-28] MEDS: ASCORBIC ACID 500 MG TABLET PO SCH ×2 (08:49→20:43)
[2018-06-28] MEDS: ZINC SULFATE 220 MG ( 50 ) CAPSULE PO SCH (08:49)
[2018-06-28] MEDS: FERROUS SULFATE 325MG TABLET PO SCH ×3 (08:49→16:42)
[2018-06-28] MEDS: FAMOTIDINE 20MG TABLET PO SCH ×2 (08:49→20:44)
[2018-06-28] MEDS: HYDROCODONE/ACETAMINOPHEN 5/325MG TABLET PO SCH (08:50)
[2018-06-28] MEDS: NYSTATIN POWDER 15GM TOP SCH ×2 (08:50→16:50)
[2018-06-28] MEDS: SERTRALINE HCL 100MG TABLET PO SCH (08:51)
[2018-06-28] MEDS: SERTRALINE HCL 25MG TABLET PO SCH (08:51)
[2018-06-28] MEDS ORDERED: INSULIN LISPRO 100 UNITS/ML SUBCUT NR (11:43)
[2018-06-28 12:59] LABS: AMMONIA 39 uMol/L (<32)
[2018-06-28 20:00] VITALS: BP 120/60
[2018-06-28] MEDS: DIVALPROEX SODIUM 250MG ER TABLET PO SCH (20:43)
[2018-06-28] MEDS: DIVALPROEX SODIUM 500MG ER TABLET PO SCH (20:43)
[2018-06-28] MEDS: ATORVASTATIN CALCIUM 10MG TABLET PO SCH (20:43)
[2018-06-28] MEDS: QUETIAPINE FUMARATE 50MG TABLET PO SCH (20:44)
[2018-06-28] MEDS: RISPERIDONE 0.5MG TABLET PO SCH (20:44)
[2018-06-28] MEDS: TAMSULOSIN HCL 0.4MG SR CAPSULE PO SCH (20:44)
[2018-06-28] MEDS: INSULIN GLARGINE UD 100 UNITS/ML SYR SUBCUT SCH (21:09)
[2018-06-29] MEDS: INSULIN LISPRO 100 UNITS/ML SUBCUT SCH ×2 (06:35→12:48)
[2018-06-29] MEDS: BLOOD SUGAR DIAGNOSTIC STRIP TEST SCH ×2 (06:35→11:15)
[2018-06-29 08:00] VITALS: BP 111/67
[2018-06-29 08:26] LABS: AMMONIA 52 uMol/L (<32)
[2018-06-29] MEDS: SERTRALINE HCL 25MG TABLET PO SCH (09:40)
[2018-06-29] MEDS: SERTRALINE HCL 100MG TABLET PO SCH (09:40)
[2018-06-29] MEDS: FAMOTIDINE 20MG TABLET PO SCH (09:40)
[2018-06-29] MEDS: ENOXAPARIN 40MG/0.4ML SYR SUBCUT SCH (09:40)
[2018-06-29] MEDS: LACTULOSE 20G/30ML UDC PO SCH (09:41)
[2018-06-29] MEDS: ASCORBIC ACID 500 MG TABLET PO SCH (09:41)
[2018-06-29] MEDS: MAGNESIUM OXIDE 400MG TABLET PO SCH (09:41)
[2018-06-29] MEDS: FERROUS SULFATE 325MG TABLET PO SCH ×2 (09:41→12:25)
[2018-06-29] MEDS: PROPRANOLOL HCL 20MG TABLET PO SCH (09:41)
[2018-06-29] MEDS: ZINC SULFATE 220 MG ( 50 ) CAPSULE PO SCH (09:41)
[2018-06-29] MEDS: NYSTATIN POWDER 15GM TOP SCH (09:42)
[2018-06-29 10:57] VITALS: BP 111/67
[2018-06-29] MEDS ORDERED: INSULIN LISPRO 100 UNITS/ML SUBCUT SCH (12:45)
== END 2018-06-29 15:50 | disposition home health service (06) | DRG 536 ==
PROVIDERS: ADMIT Physical Medicine & Rehabilitation Spinal Cord Injury Medicine; ATTEND Internal Medicine
DX: S72.142A Displaced intertrochanteric fracture of left femur, initial encounter for closed fracture (principal); E11.65 Type 2 diabetes mellitus with hyperglycemia; F20.9 Schizophrenia, unspecified; M79.609 Pain in unspecified limb; R53.81 Other malaise; R26.9 Unspecified abnormalities of gait and mobility; E78.5 Hyperlipidemia, unspecified; D72.829 Elevated white blood cell count, unspecified; D63.8 Anemia in other chronic diseases classified elsewhere; R47.1 Dysarthria and anarthria; R00.0 Tachycardia, unspecified; I11.9 Hypertensive heart disease without heart failure; B95.2 Enterococcus as the cause of diseases classified elsewhere; Z16.21 Resistance to vancomycin; R62.50 Unspecified lack of expected normal physiological development in childhood; E83.42 Hypomagnesemia; R74.0 Nonspecific elevation of levels of transaminase and lactic acid dehydrogenase [LDH]; R55 Syncope and collapse; F71 Moderate intellectual disabilities; K76.9 Liver disease, unspecified; W19.XXXA Unspecified fall, initial encounter; N40.0 Benign prostatic hyperplasia without lower urinary tract symptoms; Z79.4 Long term (current) use of insulin; Y93.89 Activity, other specified; Y92.89 Other specified places as the place of occurrence of the external cause; Y99.8 Other external cause status; Z81.0 Family history of intellectual disabilities; Z79.899 Other long term (current) drug therapy
CPT/HCPCS: 36415; 70551; 71046; 73502; 73552; 74018; 74177; 76700; 80048; 80053; 80061; 80076; 80165; 81003; 82140; 82270; 82306; 82607; 82728; 82746; 82962; 83036; 83540; 83550; 83735; 84100; 84134; 84153; 84443; 84630; 85025; 87040; 87086; 92523; 92610; 93005; 93306; 93970; 93976; 97110; 97116; 97163; 97167; 97530; 97535; A6261; C1893; J1650; J1815; J3420; Q9967; G0103

== ENCOUNTER 2018-10-07 11:14 | Emergency (ER) | payer MEDICARE, MEDICAID ==
[~2018-10-07] VITALS: Ht 157.5 cm; Wt 59.0 kg
[~2018-10-07 11:14] MED LIST changes: -ACET167L14 PO; -BENZ1TAB7 MT; -CHOL100044 MT; -DIVA250T45 PO; -DIVA500T51 PO; -DOCU250C69 PO; -FINA5TAB11 PO; -INSU300I SQ; -LORA0.5T2 PO; -LORA10TA7 PO; -MELA3TAB71 PO; -POLY15DR55 LEFTEYE; -PRAV10TA35 MT; -PROP60CA2 PO; -QUET100T33 PO; -QUET300T19 MT; -RISP1TAB26 PO; -RISP2TAB22 PO; -[UNRECOGNIZED DRUG - CODE] PO
[2018-10-07 14:32] LABS: BASOPHILS % 0.3 % (0.0-2.0); EOSINOPHILS % 0.4 % (0.0-5.0); HEMATOCRIT. 46.6 % (42.0-52.0); HEMOGLOBIN. 15.8 g/dL (14.0-18.0); LYMPHOCYTES % 14.9 % (20.0-50.0); MEAN CORPUSCULAR HEMOGLOBIN 32.5 pg (28.0-32.0); MEAN CORPUSCULAR VOLUME 95.8 fL (80.0-94.0); MEAN PLATELET VOLUME 6.6 fl (7.4-10.4); MONOCYTES % 9.8 % (2.0-8.0); NEUTROPHILS % 74.6 % (40.0-76.0); PLATELET 136 x1000/uL (130-400); RED BLOOD CELL COUNT 4.86 mill/uL (4.7-6.1); RED CELL DISTRIBUTION WIDTH 14.5 % (11.6-14.6)
[2018-10-07 14:39] LABS: PROTHROMBIN TIME 10.5 sec (9.1-11.1)
[2018-10-07 15:15] VITALS: BP 111/69
== END 2018-10-07 15:32 | disposition home or self-care (01) ==
LOC: ER 12:38
DX: R21 Rash and other nonspecific skin eruption (principal); E11.9 Type 2 diabetes mellitus without complications; Z79.899 Other long term (current) drug therapy
CPT/HCPCS: 36415; 99283

== ENCOUNTER 2022-04-02 07:00 | Emergency (ER) | payer MEDICARE, MEDICAID ==
[~2022-04-02] VITALS: Ht 167.6 cm; Wt 65.0 kg
[~2022-04-02 07:00] MED LIST changes: +ACET-2708 MT; +AMMO140C2 TOP; +ASCO-339 PO; +ASPI-1497 PO; +ATOR10TA69 PO; +BISA5TAB10 PO; +BISM525O9 PO; +DEXT15LI PO; +DIAZ10TA4 PO; +FLUT15.844 BOTHNSTRLS; +FLUT15.844 NS; +GLUC1KIT IM; +GLUCAGON; +IBUP-2028 PO; +INSU100C6 SQ; +INSU300I SQ; +KETO15CR2 TP; +LORA-250 PO; +LORA10TA7 PO; +MAG-55 PO; +MAGN400T8 PO; +MELA5TAB3 MT; +MIRT-89 PO; +MUPI15CR11 TP; +OLAN15TA35 PO; +PETR99OI; +PETR99OI TP; +POLY119P3 PO; -SERT-112 MT; -SERT-112 PO; +SIME125T3 PO; -TAMS0.4C31 PO; +ZINC50TA72 PO
[2022-04-02 09:18] LABS: BASOPHILS % 0.2 % (0.0-2.0); HEMATOCRIT. 46.3 % (42.0-52.0); HEMOGLOBIN. 15.4 g/dL (14.0-18.0); LYMPHOCYTES % 7.2 % (20.0-50.0); MEAN CORPUSCULAR HEMOGLOBIN 32.8 pg (28.0-32.0); MEAN CORPUSCULAR VOLUME 98.4 fL (80.0-94.0); MEAN PLATELET VOLUME 8.2 fl (7.4-10.4); MONOCYTES % 5.3 % (2.0-8.0); NEUTROPHILS % 87.3 % (40.0-76.0); PLATELET 166 x1000/uL (130-400); RED BLOOD CELL COUNT 4.71 mill/uL (4.7-6.1); RED CELL DISTRIBUTION WIDTH 13.5 % (11.6-14.6)
[2022-04-02 10:57] LABS: CLARITY URINE CLEAR (CLEAR); COLOR URINE YELLOW (YELLOW); KETONES URINE 3+ (NEGATIVE); LEUKOCYTE ESTERASE URINE 1+ (NEGATIVE); NITRITE URINE POSITIVE (NEGATIVE); OCCULT BLOOD URINE 2+ (NEGATIVE); PROTEIN URINE NEGATIVE (NEGATIVE); SPECIFIC GRAVITY URINE 1.027 (1.005-1.030); UROBILINOGEN URINE 0.2 E.U./dL (0.2-1.0)
[2022-04-02 11:03] LABS: CHLORIDE 105 mEq/L (98-107)
[2022-04-02] MEDS ORDERED: LEVOFLOXACIN 250MG TABLET PO ONE (11:15)
[2022-04-02] MEDS ORDERED: LEVO750T46 PO (11:16)
[2022-04-02 12:55] VITALS: BP 114/62
== END 2022-04-02 13:56 | disposition home or self-care (01) ==
LOC: ER 07:00
DX: N39.0 Urinary tract infection, site not specified (principal); R31.0 Gross hematuria; E11.65 Type 2 diabetes mellitus with hyperglycemia; K92.1 Melena
CPT/HCPCS: 36415; 80053; 81003; 82962; 85025; 87077; 87186; 99283

== ENCOUNTER 2022-07-29 09:32 | Emergency (ER) | payer MEDICARE, MEDICAID ==
[~2022-07-29] VITALS: Ht 170.2 cm; Wt 63.0 kg
[~2022-07-29 09:32] MED LIST changes: +LEVO750T46 PO; +MAGN400T55 PO; -MAGN400T8 PO
[2022-07-29] MEDS ORDERED: ACET-2708 MT (12:22)
[2022-07-29 14:34] VITALS: BP 158/63
== END 2022-07-29 09:55 | disposition home or self-care (01) ==
LOC: ER 09:39
DX: Z00.00 Encounter for general adult medical examination without abnormal findings (principal); E11.9 Type 2 diabetes mellitus without complications; Z79.899 Other long term (current) drug therapy
CPT/HCPCS: 71045; 72170; 99284

== ENCOUNTER 2022-12-18 13:55 | Inpatient (IN) | payer MEDICARE, MEDICAID ==
[~2022-12-18] VITALS: Ht 167.6 cm; Wt 50.8 kg
[~2022-12-18 13:55] MED LIST changes: +BISA-145 PO; -BISA5TAB10 PO; -LEVO750T46 PO; +LEVO750T68 PO
[2022-12-18] MEDS ORDERED: LORAZEPAM 2MG/ML CPJ IV ONE (18:15)
[2022-12-18 19:10] LABS: BASOPHILS % 0.3 % (0.0-2.0); EOSINOPHILS % 0.1 % (0.0-5.0); HEMATOCRIT. 44.5 % (42.0-52.0); HEMOGLOBIN. 14.8 g/dL (14.0-18.0); LYMPHOCYTES % 18.8 % (20.0-50.0); MEAN CORPUSCULAR HEMOGLOBIN 31.1 pg (28.0-32.0); MEAN CORPUSCULAR VOLUME 93.4 fL (80.0-94.0); MEAN PLATELET VOLUME 7.7 fl (7.4-10.4); NEUTROPHILS % 73.8 % (40.0-76.0); PLATELET 280 x1000/uL (130-400); RED BLOOD CELL COUNT 4.76 mill/uL (4.7-6.1); RED CELL DISTRIBUTION WIDTH 15.1 % (11.6-14.6)
[2022-12-18 19:17] LABS: CHLORIDE 101 mEq/L (98-107)
[2022-12-18 19:21] LABS: INR 0.9; PARTIAL THROMBOPLASTIN TIME 29.1 sec (23.4-31.0); PROTHROMBIN TIME 10.1 sec (9.6-11.0)
[2022-12-18] MEDS ORDERED: ACETAMINOPHEN 500MG TABLET PO STA (19:31)
[2022-12-18] MEDS ORDERED: AZITHROMYCIN 500MG/250ML 250 ML IV ONE (19:45)
[2022-12-18] MEDS ORDERED: CEFTRIAXONE 2 G PREMIX 50 ML IV ONE (19:45)
[2022-12-18] MEDS ORDERED: CEFTRIAXONE 2 G in DEXTROSE 5% WATER 50 ML IV SCH (20:00)
[2022-12-18 23:45] VITALS: BP 110/67
[2022-12-19] VITALS: BP 110/67
[2022-12-19 00:09] LABS: CLARITY URINE CLEAR (CLEAR); COLOR URINE YELLOW (YELLOW); KETONES URINE TRACE (NEGATIVE); LEUKOCYTE ESTERASE URINE NEGATIVE (NEGATIVE); NITRITE URINE NEGATIVE (NEGATIVE); OCCULT BLOOD URINE NEGATIVE (NEGATIVE); PROTEIN URINE NEGATIVE (NEGATIVE); SPECIFIC GRAVITY URINE 1.031 (1.005-1.030); UROBILINOGEN URINE 0.2 E.U./dL (0.2-1.0)
[2022-12-19 04:00] VITALS: BP 140/62
[2022-12-19] MEDS ORDERED: ACETAMINOPHEN 325MG TABLET PO PRN (05:15)
[2022-12-19] MEDS ORDERED: ALBUTEROL (0.083%) 2.5MG/3ML NEB HHN SCH (06:00)
[2022-12-19 08:00] VITALS: BP 123/63
[2022-12-19] MEDS ORDERED: DEXTROSE 50% WATER 50ML SYRINGE IV PRN (10:45)
[2022-12-19] MEDS ORDERED: ONDANSETRON HCL 4MG/2ML INJ IV PRN (10:45)
[2022-12-19 12:00] VITALS: BP 139/74
[2022-12-19] MEDS ORDERED: IPRATROPIUM/ALBUTEROL 0.5-3(2.5)MG/3ML NEB HHN SCH (12:00)
[2022-12-19] MEDS: BLOOD SUGAR DIAGNOSTIC STRIP TEST SCH ×2 (12:20→17:20)
[2022-12-19] MEDS: INSULIN LISPRO 100 UNITS/ML SUBCUT SCH (12:50)
[2022-12-19] MEDS ORDERED: ALBUTEROL (0.083%) 2.5MG/3ML NEB HHN PRN (14:45)
[2022-12-19 16:00] VITALS: BP 151/70
[2022-12-19] MEDS: LORAZEPAM 2MG/ML CPJ IV PRN ×2 (16:45→20:31)
[2022-12-19] MEDS: CEFTRIAXONE 1,000 MG in DEXTROSE 5% WATER 50 ML IV SCH (19:00)
[2022-12-19 20:00] VITALS: BP 151/74
[2022-12-19] MEDS: AZITHROMYCIN 250 MG TABLET PO SCH (22:00)
[2022-12-20] VITALS: BP 146/70
[2022-12-20 04:00] VITALS: BP 145/73
[2022-12-20] MEDS: IPRATROPIUM BROMIDE (0.02%) 0.5MG/2.5ML NEB HHN SCH ×3 (08:55→20:00)
[2022-12-20] MEDS: ALBUTEROL (0.083%) 2.5MG/3ML NEB HHN SCH ×3 (08:55→20:00)
[2022-12-20] MEDS: ENOXAPARIN 40MG/0.4ML SYR SUBCUT SCH (09:01)
[2022-12-20] MEDS ORDERED: INSULIN GLARGINE 100 UNITS/ML SUBCUT NR (13:00)
[2022-12-20] MEDS: AZITHROMYCIN 250 MG TABLET PO SCH (17:56)
[2022-12-20] MEDS: BLOOD SUGAR DIAGNOSTIC STRIP TEST SCH ×2 (17:57→20:57)
[2022-12-20] MEDS: INSULIN LISPRO 100 UNITS/ML SUBCUT SCH ×3 (18:06→22:42)
[2022-12-20] MEDS: CEFTRIAXONE 1,000 MG in DEXTROSE 5% WATER 50 ML IV SCH (18:06)
[2022-12-20] MEDS: INSULIN GLARGINE 100 UNITS/ML SUBCUT SCH (22:50)
[2022-12-21] VITALS: BP 113/69
[2022-12-21] MEDS: ALBUTEROL (0.083%) 2.5MG/3ML NEB HHN SCH ×3 (02:00→12:00)
[2022-12-21] MEDS: IPRATROPIUM BROMIDE (0.02%) 0.5MG/2.5ML NEB HHN SCH ×3 (02:00→12:00)
[2022-12-21] MEDS: BLOOD SUGAR DIAGNOSTIC STRIP TEST SCH ×2 (07:20→12:48)
[2022-12-21] MEDS ORDERED: INSULIN LISPRO 100 UNITS/ML SUBCUT SCH (07:20)
[2022-12-21] MEDS: ENOXAPARIN 40MG/0.4ML SYR SUBCUT SCH (08:38)
[2022-12-21] MEDS ORDERED: LEVO750T68 PO (09:24)
[2022-12-21] MEDS: INSULIN GLARGINE 100 UNITS/ML SUBCUT SCH (11:11)
[2022-12-21 16:08] VITALS: BP 136/78
== END 2022-12-21 18:05 | disposition home or self-care (01) | DRG 871 ==
LOC: ER 13:55 → MICUSO 22:43 → 6EST 12-19 00:14
PROVIDERS: ADMIT Internal Medicine; ATTEND Internal Medicine
DX: A41.9 Sepsis, unspecified organism (principal); J18.9 Pneumonia, unspecified organism; J96.00 Acute respiratory failure, unspecified whether with hypoxia or hypercapnia; F03.911 Unspecified dementia, unspecified severity, with agitation; R04.2 Hemoptysis; E11.65 Type 2 diabetes mellitus with hyperglycemia; F41.9 Anxiety disorder, unspecified; E78.5 Hyperlipidemia, unspecified; Z20.822 Contact with and (suspected) exposure to COVID-19; N40.0 Benign prostatic hyperplasia without lower urinary tract symptoms; Z88.6 Allergy status to analgesic agent
CPT/HCPCS: 36415; 71045; 80053; 81003; 82962; 83605; 85025; 87070; 87426; 87804; 99285; C9803; J0456; J0696; J1650; J1815; J2060; J7060

== ENCOUNTER 2024-03-13 11:54 | Emergency (ER) | payer MEDICARE, MEDICAID ==
[~2024-03-13] VITALS: Ht 167.6 cm; Wt 75.0 kg
[2024-03-13 11:58] VITALS: O2SAT 96
[2024-03-13 13:15] VITALS: BP 128/76; PULSE 66; RESP 17; TEMP 97.2
== END 2024-03-13 13:43 | disposition home or self-care (01) ==
LOC: ER 11:54
DX: M79.601 Pain in right arm (principal); F41.9 Anxiety disorder, unspecified; F03.90 Unspecified dementia, unspecified severity, without behavioral disturbance, psychotic disturbance, mood disturbance, and anxiety; E11.9 Type 2 diabetes mellitus without complications; E78.00 Pure hypercholesterolemia, unspecified; V49.59XA Passenger injured in collision with other motor vehicles in traffic accident, initial encounter; Y93.89 Activity, other specified; Y92.89 Other specified places as the place of occurrence of the external cause; Y99.8 Other external cause status; Z87.01 Personal history of pneumonia (recurrent); Z79.899 Other long term (current) drug therapy
CPT/HCPCS: 99283